=== PATIENT | male | born 1975 | race Hispanic/Latino ===

== ENCOUNTER 2016-10-16 22:04 | Emergency (ER) | payer SELFPAY ==
[2016-10-17] MEDS ORDERED: NORCO 5/325 PO ONE (00:45)
[2016-10-17] MEDS ORDERED: FLEXERIL PO ONE (00:45)
[2016-10-17] MEDS ORDERED: TORADOL IM ONE (00:45)
--- NOTE | 2016-10-17 00:46 | Emergency Department Report ---
ED Fall HPI - General Chief Complaint: Fall Stated Complaint: LEFT SIDE PAIN Source: patient Mode of arrival: Ambulatory Limitations: No Limitations - History of Present Illness Initial Comments: 41 year old male present to ED with left sided rib pain after mechanical ground level fall. patient states he slipped and fell on wet ground 6-7 days ago and has worsening left sided rib pain. patient denies trauma to head/neck or LOC. MD Complaint: fall -: Sudden Fall From: standing When Fall Occurred: # days NUT [employer] (6) Place Fall Occurred: street Loss of Consciousness: none Prolonged Down Time?: no Symptoms Prior to Fall: none Location: chest Severity: moderate Quality: stabbing Context: tripped/slipped Associated Symptoms: denies: headache, neck pain, numbness, weakness, shortness of breath, abdominal pain, hematuria, unable to walk, lightheaded, vertigo, confusion - Related Data Previous Rx's Medication Instructions Recorded Last Taken Type Cyclobenzaprine [Flexeril] 10 mg PO TID PRN #21 tablet 10/17/16 Unknown Rx HYDROcodone/APAP 5-325 [Edwards 1 each PO TID PRN #15 tablet 10/17/16 Unknown Rx 5/325] Allergies Allergy/AdvReac Type Severity Reaction Status Date / Time No Known Allergies Allergy Unverified 10/16/16 22:08 ED Review of Systems ROS: Stated complaint: LEFT SIDE PAIN Other details as noted in HPI Constitutional: denies: chills, fever Eyes: denies: eye pain, eye discharge, vision change ENT: denies: ear pain, throat pain Respiratory: denies: cough, shortness of breath, wheezing Cardiovascular: other (left sided rib pain). denies: palpitations Endocrine: no symptoms reported Gastrointestinal: denies: abdominal pain, nausea, vomiting, diarrhea Genitourinary: denies: urgency, dysuria Musculoskeletal: denies: back pain, joint swelling, arthralgia Skin: denies: rash, lesions Neurological: denies: headache, weakness, numbness, paresthesias, confusion, abnormal gait, vertigo Psychiatric: denies: anxiety, depression Hematological/Lymphatic: denies: easy bleeding, easy bruising ED Past Medical Hx - Past Medical History Previous Medical History?: No - Surgical History Past Surgical History?: No - Social History Smoking Status: Current Every Day Smoker Substance Use Type: Alcohol, Marijuana - Medications Home Medications: Home Medications Medication Instructions Recorded Confirmed Last Taken Type Cyclobenzaprine [Flexeril] 10 mg PO TID PRN #21 tablet 10/17/16 Unknown Rx HYDROcodone/APAP 5-325 [Edwards 1 each PO TID PRN #15 tablet 10/17/16 Unknown Rx 5/325] ED Physical Exam - General Limitations: No Limitations General appearance: alert, in no apparent distress - Head Head exam: Present: atraumatic, normocephalic - Eye Eye exam: Present: normal appearance - ENT ENT exam: Present: mucous membranes moist - Neck Neck exam: Present: normal inspection - Respiratory Respiratory exam: Present: normal lung sounds bilaterally, chest wall tenderness (left side lateral rib). Absent: respiratory distress, wheezes, rales, rhonchi - Cardiovascular Cardiovascular Exam: Present: regular rate, normal rhythm. Absent: systolic murmur, diastolic murmur, rubs, gallop - GI/Abdominal GI/Abdominal exam: Present: soft, normal bowel sounds. Absent: distended, tenderness, guarding - Rectal Rectal exam: Present: deferred - Extremities Exam Extremities exam: Present: normal inspection, full ROM. Absent: tenderness - Back Exam Back exam: Present: normal inspection, full ROM. Absent: tenderness - Neurological Exam Neurological exam: Present: alert, oriented X3, normal gait - Psychiatric Psychiatric exam: Present: normal affect, normal mood - Skin Skin exam: Present: warm, dry, intact, normal color. Absent: rash ED Course Vital Signs 10/16/16 10/17/16 22:08 02:27 Temperature 986 F H Pulse Rate 80 76 Respiratory 20 18 Rate Blood Pressure 140/93 Blood Pressure 127/79 [Left] O2 Sat by Pulse 100 98 Oximetry ED Medical Decision Making - Radiology Data Radiology results: report reviewed XR ribs left Nondisplaced Fractures of the posterior margins of the left 7 and 8 ribs. No large consolidation or effusion. No pneumothorax. - Medical Decision Making 41 year old male presents to ED with left sided rib pain after mechanical ground level fall. patient is stable, neurologically intact and in no acute distress. patient has imaging positive for 7 and 8th non displaced rib fracture. patient agrees and understands to follow up with Dr. Banuelos within 2- 3 days. Critical care attestation.: If time is entered above; I have spent that time in minutes in the direct care of this critically ill patient, excluding procedure time. ED Disposition Disposition: DC-01 TO HOME OR SELFCARE Is pt being admited?: No Does the pt Need Aspirin: No Condition: Stable Instructions: Rib Fracture (ED) Prescriptions: Cyclobenzaprine [Flexeril] 10 mg PO TID PRN #21 tablet PRN Reason: Muscle Spasm HYDROcodone/APAP 5-325 [Edwards 5/325] 1 each PO TID PRN #15 tablet PRN Reason: Pain Referrals: LUIS M BANUELOS MD [Staff Physician] - 2-3 Days Forms: Work/School Release Form(ED)
[2016-10-17] MEDS ORDERED: TORADOL ONE (01:09)
--- NOTE | 2016-10-17 01:18 | XRay Report ---
FINAL REPORT EXAM: XR RIBS UNILAT 2V LT HISTORY: fall, rib pain COMPARISON: None available. FINDINGS: Single frontal view of the chest and three views of left ribs obtained shallow inspiration. Heart normal in size. Mild linear atelectasis at the left lung base. No large consolidation or effusion. No pneumothorax. Nondisplaced fractures through the posterior margins of the left 7th and 8th ribs. IMPRESSION: Shallow inspiration with mild linear atelectasis at the left lung base. Fractures of the posterior margins of the left 7th and 8th ribs.
[2016-10-17 02:28] VITALS: BP 127/79
== END 2016-10-17 02:28 | disposition home or self-care (01) ==
LOC: ED 22:04
DX: R07.81 Pleurodynia (principal); F17.200 Nicotine dependence, unspecified, uncomplicated; F12.10 Cannabis abuse, uncomplicated; W01.0XXA Fall on same level from slipping, tripping and stumbling without subsequent striking against object, initial encounter; Y93.89 Activity, other specified; Y99.8 Other external cause status; Y92.89 Other specified places as the place of occurrence of the external cause
CPT/HCPCS: 71100; 96372; 99283; J1885